=== PATIENT | male | born 1995 | race African-American/Black ===

== ENCOUNTER 2020-04-26 02:13 | Emergency (ER) | payer OTHER ==
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
[2020-04-26 06:05] VITALS: BP 128/88
== END 2020-04-26 06:15 | disposition home or self-care (01) ==
LOC: ER 02:13
DX: S09.90XA Unspecified injury of head, initial encounter (principal); M54.5 Low back pain; M54.2 Cervicalgia; M54.6 Pain in thoracic spine; R51 Headache; V87.7XXA Person injured in collision between other specified motor vehicles (traffic), initial encounter
CPT/HCPCS: 70450; 72125; 72131; 99283